=== PATIENT | male | born 1935 | race Caucasian/White ===

== ENCOUNTER 2016-10-23 17:47 | Emergency (ER) | payer MEDICARE, BC ==
[2016-10-23] MEDS ORDERED: Sodium Chloride 0.9% 10 ML Syringe FLUSH PRN (17:54)
[2016-10-23] MEDS ORDERED: Ketorolac 30 MG/ML SDV IVPUSH ONE (17:54)
[2016-10-23 20:18] VITALS: BP 116/75
--- NOTE | 2016-10-24 01:05 | ER ---
DATE SEEN: 10/23/2016 TIME SEEN: 1830 hours. CHIEF COMPLAINT: Chest pain. HISTORY OF PRESENT ILLNESS: This is an 81-year-old [facility] with chest pain, left-sided that happened yesterday and this morning. Initially, was able to be improved by nitroglycerin, but it got worse earlier and he comes in with pain about 2/10 with no radiation. He has had these symptoms before, thought to be due to anxiety. PAST MEDICAL HISTORY: Dementia, atrial fibrillation, history of TIA, COPD, and pulmonary fibrosis. ALLERGIES: Reviewed. MEDICATIONS: Reviewed. SOCIAL HISTORY: Does not smoke or drink. PHYSICAL EXAMINATION: GENERAL: Pleasant. VITAL SIGNS: Unremarkable. ENT: Negative. NECK: Supple. CHEST: Clear. CARDIOVASCULAR: Normal. MENTAL STATUS: Alert. LABORATORY DATA: White cell count was normal. CMP was normal. Troponin 0.01. IMPRESSION: Nonspecific chest pain. PLAN: Toradol 15 mg IV was given. The patient was [facility] to the [facility]. /[id number] DOMENIC/ALEX
--- NOTE | 2016-10-24 11:14 | CR ---
INDICATION: Chest pain. CHEST: AP portable upright view of the chest 10/23/2016 was compared with 09/11 and 05/17/2013, revealing moderately severe to severe pulmonary fibrosis with markings appearing essentially unchanged from 2012. No gross consolidating pneumonia or effusion was seen. However, areas of patchy bronchopneumonia superimposed on the fibrotic changes cannot be excluded. The heart did not appear to be enlarged in this post median sternotomy patient, with tortuous calcified aorta. A moderate to moderately severe dextroconcave scoliosis of the lower thoracic spine is also noted. Hyperaeration and slight flattening of diaphragm leaves suggests COPD. IMPRESSION: 1. No definite acute process, but it is difficult to exclude areas of patchy bronchopneumonia scattered about the lungs. 2. Pulmonary fibrosis. 3. COPD. 4. Post surgical heart. 5. Scoliosis. MTDD
== END 2016-10-23 20:05 | disposition home or self-care (01) ==
LOC: FB.ED 17:47
DX: R07.9 Chest pain, unspecified (principal); I48.91 Unspecified atrial fibrillation; J44.1 Chronic obstructive pulmonary disease with (acute) exacerbation
CPT/HCPCS: 36415; 71010; 80053; 82550; 82553; 83880; 84484; 85025; 93005; 96374; 99285; J1885; 99284

== ENCOUNTER 2017-04-11 22:49 | Emergency (ER) | payer MEDICARE, BC, MEDICAID ==
[2017-04-11 23:05] VITALS: BP 126/58
[2017-04-11] MEDS ORDERED: Acetaminophen Soln 650 MG/20.3 ML UD Cup PO ONE (23:44)
--- NOTE | 2017-04-12 15:32 | CR ---
INDICATION: Complains of right ankle pain after a fall. RIGHT ANKLE: Three views of the right ankle revealed no definite acute fracture or dislocation. There did appear to be slight widening of the lateral ankle mortise - horizontal portion. This could be on the basis of a ligamental strain laterally. This should be correlated clinically. As necessary clinically, stress views of the ankle or possibly MRI may be of further diagnostic benefit. Small plantar calcaneal spur is also noted. IMPRESSION: 1. Slight lateral widening of the horizontal portion of the tibiotalar joint surface - ankle mortise - correlate clinically. 2. Tiny plantar calcaneal spur. MTDD
--- NOTE | 2017-04-12 15:38 | CR ---
INDICATION: Fall, complains of right rib pain. RIGHT RIBS WITH CHEST: CHEST: PA view of the chest 04/11/2017 was compared with 10/23/2016 and 2013, revealing moderately extensive pulmonary fibrosis, especially in the right mid lung field and lung bases. The rather heavy markings make it difficult to exclude areas of superimposed patchy bronchopneumonia. However, a definite consolidating pneumonia, contusion, effusion, or pneumothorax, was not identified. Apical pleural thickening is again noted. The heart appeared mildly prominent in size, the aorta tortuous and calcified in the arch and descending portion. There is evidence of a median sternotomy. A moderate dextroconcave scoliosis of the thoracic spine is also noted. IMPRESSION: Fairly stable appearance of the chest. No definite acute process. RIGHT RIBS: Two views of the right ribs were obtained 04/11/2017 and revealed no displaced fracture site or other acute abnormality. There may be some demineralization. MTDD
--- NOTE | 2017-04-13 23:55 | ER ---
DATE SEEN: 04/11/2017 CHIEF COMPLAINT: Fall. HISTORY OF PRESENT ILLNESS: This is an 81-year-old male, who had [facility]itness[facility]. He states he tripped over his walker while going to the bathroom twice. Complains of pain in the right rib cage, left ankle, and some bruises in the leg and the eyebrow. Denies any loss of consciousness. PAST MEDICAL HISTORY: Depression, TIA, anxiety, dementia, pulmonary fibrosis, and colostomy. MEDICATIONS: Reviewed and updated on the nurse's notes. He is on several antipsychotic. PHYSICAL EXAMINATION: VITAL SIGNS: Blood pressure is normal. Pulse is 65. His oxygenation is normal. EARS, NOSE and THROAT: Negative. HEAD: Normocephalic. EYES: Pupils are equal, react to light. CHEST: Clear. There is tenderness on the right rib cage, but lungs have diminished breath sounds bilaterally, but symmetric. EXTREMITIES: Mild swelling and bruising of the left ankle and also some bruises on the right leg. DIAGNOSTIC STUDIES: X-ray of the chest and rib was negative and so was the ankle. IMPRESSION: Frequent falls. PLAN: Supportive with Tylenol, ibuprofen as needed, and follow up in the [facility]. Review his psych medications to see if they contribute to his falling. TIME SEEN: 11:30 p.m. /[id number] DOMENIC/ALEX
== END 2017-04-11 23:54 ==
LOC: FB.ED 22:49
DX: S90.02XA Contusion of left ankle, initial encounter (principal); S80.11XA Contusion of right lower leg, initial encounter; W01.0XXA Fall on same level from slipping, tripping and stumbling without subsequent striking against object, initial encounter; Y92.121 Bathroom in nursing home as the place of occurrence of the external cause; Z86.73 Personal history of transient ischemic attack (TIA), and cerebral infarction without residual deficits
CPT/HCPCS: 71101; 73610; 99284; A9270; 99283

== ENCOUNTER 2017-04-21 21:03 | Emergency (ER) | payer MEDICARE, BC, MEDICAID ==
--- NOTE | 2017-04-22 05:28 | ER ---
DATE SEEN: 04/21/2017 HISTORY OF PRESENT ILLNESS: This 81-year-old resident of [facility] is noted to have chest pain he states for the last 3 to 4 weeks and noted to have some this evening, right side is more than left. This has been going on for 3 months. This "just felt the same as always." The second time he had chest pain recently and he apparently fell twice this last week. He denies head injury or neck injury. He is concerned that his left chest is uncomfortable at the level of lower ribs. PAST MEDICAL HISTORY: Significant for oxygen-dependent idiopathic pulmonary fibrosis, CABG, TURP, several TIAs, significant memory loss and mental fall away, dementia, and angina. He was a smoker, but discontinued in 1997. He is status post abdominal surgery for ulcerative colitis with an ileostomy, partial colon resection, bilateral cataract surgery, and in 2000, had one right coronary vessel CABG. He noted this evening the pain was sharp at 1930 hours and lasted till 2000 hours, mostly anterior chest. No associated diaphoresis, lightheadedness, or nausea. REVIEW OF SYSTEMS: The patient when asked questions he has a poor memory (dementia). Consequently, he is a poor historian. Review of systems is questionable. ALLERGIES: Colazal (balsalazide) ulcerative colitis medicine, ciprofloxacin, lisinopril, lorazepam, mesalamine, midazolam, morphine, statins, and sulfa. CURRENT MEDICATIONS: 1. Risperdal 0.25 mg b.i.d. 2. Zoloft 75 mg daily. 3. Senna-S tablets. 4. Propylene glycol. 5. Systane drops 0.3% to 0.4% eyedrops. 6. Pramoxine hydrochloride. 7. Omeprazole. 8. Nystatin. 9. Nitroglycerin. 10.Imdur 60 mg b.i.d. 11.Divalproex 500 mg daily. 12.Clotrimazole 1%. 13.Cholecalciferol (calcium carbonate with vitamin D). 14.Budesonide and formoterol puffs - Symbicort 160/4.5 inhaler 2 puffs b.i.d. 15.Ecotrin 325 mg daily. 16.Acetaminophen as needed. PHYSICAL EXAMINATION: GENERAL: The patient is a retiring fellow. He is slightly hard of hearing and he looks his age. He is somewhat slightly pale. HEENT: Pharynx without abnormality. NECK: Decreased range of motion. No neck tenderness, posterior neck. No tracheal tug. No tracheal deviation. No cervical adenopathy of neck. LUNGS: Clear to auscultation, but at the bases, some rales noted bilaterally, anterior and posterior. EXTREMITIES: Without edema. Deep tendon reflexes in upper and lower extremities hypoactive. NEUROLOGIC: Cranial nerves 2 through 12 intact. Decreased hearing. LABORATORY FINDINGS: Hemoglobin 14.5, white count 9600, normal differential, normal 69 PMNs, and 18 lymphocytes. Complete metabolic panel normal except for BUN and creatinine ratio slightly elevated because of his underhydration, reactive glucose trace elevated at 123 and calcium 8.5 without hypoalbuminemia. His troponin is less than 0.01. Chest x-ray, mild osteoporosis. No evidence for fracture noted. There are some changes suggestive of articular joint of T6 and T7, but I think this is just a posterior transverse process articulation with the rib and did not clearly turner machine to be a fracture. There are [id number] changes of fibrosis. The lungs are surprisingly clear. No clear evidence for cardiomegaly. ASSESSMENT: 1. Chronic obstructive lung disease. 2. Fall. His chest pain is secondary to contusion and fall. Chest pain is not secondary to his myocardial status. He did not have myocardial infarction. His troponin is negative and he does not have suggestion of ischemic pattern for coronary artery disease. He has previous stent placed and previous open heart surgery for right coronary bypass, has done well with that. /[id number] RADHA/ALEX
--- NOTE | 2017-04-23 13:30 | CR ---
INDICATION: Chest pain probably induced by recent fall. CHEST: Two PA views and a lateral view of the chest 04/21/2017 were compared with 04/11/2017 and 10/23/2016, as well as 05/17/2013, revealing moderately severe pulmonary fibrosis type changes in the lungs which appear fairly stable. Although no consolidating pneumonia or effusion is identified, it is difficult to exclude areas of patchy bronchopneumonia superimposed on these areas of fibrosis. The heart is enlarged. The aorta is calcified and tortuous. Evidence of previous median sternotomy is noted. Hyperaeration with slight flattening of diaphragm leaves suggests the possibility of COPD. Dextroconcave rotoscoliosis of the lower thoracic - upper lumbar spine is noted , with question of demineralization which may be on the basis of osteoporosis and should be correlated clinically. Although the fibrotic appearing changes are stable, compared with 04/11/2017, they appear to have progressed compared with the previous study of 2012. IMPRESSION: 1. No definite acute process, with progressive pulmonary fibrosis. 2. COPD. 3. ASHD with cardiomegaly and post median sternotomy change. 4. Probable osteoporosis with dextroconcave rotoscoliosis thoracolumbar spine. MTDD
== END 2017-04-21 23:10 ==
LOC: FB.ED 21:03
DX: S20.219A Contusion of unspecified front wall of thorax, initial encounter (principal); J44.9 Chronic obstructive pulmonary disease, unspecified; Z87.891 Personal history of nicotine dependence; Z98.890 Other specified postprocedural states; Z98.41 Cataract extraction status, right eye; Z98.42 Cataract extraction status, left eye; Z95.1 Presence of aortocoronary bypass graft; Z88.1 Allergy status to other antibiotic agents; Z88.5 Allergy status to narcotic agent; Z88.8 Allergy status to other drugs, medicaments and biological substances; Z79.899 Other long term (current) drug therapy; W19.XXXA Unspecified fall, initial encounter
CPT/HCPCS: 36415; 71020; 80053; 84443; 84484; 85025; 93005; 99284; 99285